=== PATIENT | female | born 1980 | race Caucasian/White ===

== ENCOUNTER → 2021-08-13 | Outpatient (CLI) | payer OTHER ==
--- NOTE | 2021-08-13 18:06 | DIREP ---
PROCEDURE:US PELVIS COMPLETE COMPARISON:None. INDICATIONS:HYPERTROPHY, CONDITIONS WITH FEMALE GENITAL ORGANS AND MENSTRUAL CYCLE TECHNIQUE:Pelvic ultrasound using transabdominal technique. Endovaginal images were also obtained for better assessment of the uterus and adnexa. FINDINGS: LMP: 07/21/2021 UTERUS:Size is 10.1 x 5.9 x 6.5 cm. The myometrium is homogeneous. A polyp or submucosal leiomyoma is identified in the uterine fundus measuring 1.6 x 1.5 x 1.2 cm. Small cystic foci are seen in the uterine fundus measuring up to 0.9 x 0.5 x 0.8 cm. ENDOMETRIUM:Thickness is 19 mm. RIGHT OVARY:Normal appearance. 3.7 x 1.7 x 3.4 cm. Indeterminate hypoechoic mass with posterior acoustic shadowing in the right adnexa measuring 3.3 x 1.7 x 1.6 cm. Mild internal vascularity. LEFT OVARY:Normal appearance. 4.1 x 1.7 x 3.7 cm. CUL-DE-SAC:Normal. OTHER:Negative. CONCLUSION: 1. Indeterminate hypoechoic mass in the right adnexa with posterior acoustic shadowing. Recommend further evaluation with CT or MRI. 2. Endometrial polyp or submucosal leiomyoma in the uterine fundus. Small cystic foci are also noted in the uterine fundus. Dictated by: ELOY Physician on 08/13/2021 at 05:18 PM chepe
== END | disposition home or self-care (01) ==
LOC: RAD 10:38
PROVIDERS: ATTEND Nurse Practitioner Women's Health
DX: N85.8 Other specified noninflammatory disorders of uterus (principal); N83.8 Other noninflammatory disorders of ovary, fallopian tube and broad ligament; N85.2 Hypertrophy of uterus; N94.89 Other specified conditions associated with female genital organs and menstrual cycle
CPT/HCPCS: 76830; 76856

== ENCOUNTER → 2021-09-12 | Outpatient (CLI) | payer OTHER ==
--- NOTE | 2021-09-13 09:36 | DIREP ---
PROCEDURE:Digital Screening Mammogram TECHNIQUE:MLO, CC, and XCCL digital images of each breast are provided. Computer Assisted Detection (CAD) was utilized. COMPARISON:None. INDICATIONS:SCREENING BASELINE BREAST COMPOSITION:Heterogeneously dense, which may obscure small masses. FINDINGS:There are no grouped microcalcifications, masses, or architectural distortions to suggest malignancy. IMPRESSION:No mammographic evidence of malignancy. RECOMMENDATIONS:Routine Screening Mammography per [employer] guidelines. OVERALL FINAL ASSESSMENT:BI-RADS 1 - Negative Mammogram Note: This facility participates in a mammography screening patient reminder system. Dictated by: Gurinder Bergman M.D. on 09/13/2021 at 09:33 AM
== END | disposition home or self-care (01) ==
LOC: RAD 16:42
PROVIDERS: ATTEND Nurse Practitioner Women's Health
DX: Z12.31 Encounter for screening mammogram for malignant neoplasm of breast (principal)
CPT/HCPCS: 77067